=== PATIENT | male | born 1995 | race Two or more races ===

== ENCOUNTER 2017-01-11 07:21 | Inpatient (IN) | payer OTHER ==
[2017-01-11 07:43] LABS: % IMMATURE GRANULYOCYTES 0.1 % (0.0-1.1); ABSOLUTE IMMATURE GRANULOCYTES 0.01 10^3/uL (0.00-0.10); ADD DIFF? NO; ADD MORPH? NO; ADD SCAN? NO; ATYPICAL LYMPHOCYTE FLAG 0 (0-99); FRAGMENT RBC FLAG 0 (0-99); HEMOGLOBIN 17.9 g/dL (13.7-17.5); LEFT SHIFT FLG 0 (0-99); LIPEMIA HEMOLYSIS FLAG 90 (0-99); MEAN CELL HEMOGLOBIN 31.7 pg (27.9-34.1); MEAN CELL HEMOGLOBIN CONCENTR. 35.1 g/dL (32.4-36.7); MEAN CELL VOLUME 90.4 fL (81.5-99.8); MEAN PLATELET VOLUME 10.9 fL (8.7-11.7); PLATELET CLUMPS FLAG 0 (0-99); PLATELET COUNT 201 10^3/uL (150-400); RED BLOOD CELL COUNT 5.64 10^6/uL (4.40-6.38); RED CELL DISTRIBUTION WIDTH 12.4 % (11.5-15.2)
[2017-01-11] MEDS ORDERED: NS 1,000 ML IV ONE (07:52)
[2017-01-11] MEDS ORDERED: fentaNYL 100 MCG/2 ML INJ IVP ONE (07:52)
[2017-01-11] MEDS ORDERED: ONDANSETRON 4 MG/2 ML VIAL IVP ONE (07:52)
--- NOTE | 2017-01-11 07:56 | EDPHY ---
H & P Time Seen by Provider: 01/11/17 07:52 HPI/ROS: CHIEF COMPLAINT: Abdominal pain HISTORY OF PRESENT ILLNESS: Patient is a 21-year-old male status gastric bypass in 2011 and gallstones who presents emergency department with lower abdominal pain starting at 3:30 a.m. this morning. His pain was initially waxing waning. He describes it as bandlike along his lower abdomen. Initially started on the left side but now is more in the middle and right. He has had no nausea, vomiting or diarrhea. No dysuria frequency. Patient states he has had episodes like this previously. He has been told that he has gallbladder "mud." Patient also has issues "with my colon." No fever or chills. REVIEW OF SYSTEMS: My complete review of systems is negative except as mentioned in the HPI. Past Medical/Surgical History: Includes intermittent stomach issues, gallstones, gastric bypass Social history: The patient is taking finals. He does not smoke Smoking Status: Current every day smoker Physical Exam: Vitals noted GENERAL: Well-appearing, in no acute distress, alert. HEENT: Eyes normal to inspection, normal pharynx, no signs of dehydration. NECK: No thyromegaly, no lymphadenopathy, supple. RESPIRATORY: Clear to auscultation bilaterally, no rales, rhonchi or wheezing. CVS: Regular rate and rhythm, no rubs, murmurs, or gallops. ABDOMEN: Soft, patient has mild suprapubic, right lower quadrant, and LLQ tenderness palpation with no rebound or guarding. Patient has no right upper quadrant or epigastric tenderness to palpation. nondistended, no organomegaly. BACK: Normal to inspection, no CVA tenderness. SKIN: Normal color, no rash, warm, dry. No pallor. EXTREMITIES: No pedal edema, no calf tenderness, no Homans sign or cords, no joint swelling. NEURO/PSYCH: Alert and oriented x3, normal mood and affect, normal motor sensory exam. Constitutional: Initial Vital Signs Temperature (C) 36.5 C 01/11/17 07:32 Heart Rate 85 01/11/17 07:32 Respiratory Rate 18 01/11/17 07:32 Blood Pressure 119/88 H 01/11/17 07:32 O2 Sat (%) 96 01/11/17 07:32 O2 Delivery Mode Room Air Allergies/Adverse Reactions: No Known Allergies Allergy (Verified 04/14/16 16:28) Home Medications: Medication Instructions Recorded Pantoprazole Sodium [Protonix 40mg 40 mg PO DAILY 01/11/17 (*)] Medical Decision Making - Diagnostics Imaging Results: Imaging Impressions Abdomen CT 01/11/17 07:52 Impression: 1. Moderate partial SBO region of the proximal to mid ileum right mid abdomen anteriorly. 2. Mild hiatal hernia with some bowel anastomotic sutures along the margin of the stomach from previous gastric bypass procedure. 3. 1 mm nonobstructive calculus upper pole right kidney. Findings discussed with Isabelle Monroy M.D. at 9:07 hour, 01/11/2017. ED Course/Re-evaluation: In the emergency department I discussed possible etiologies with the patient. I answered all his questions. IV was placed. Laboratory studies were ordered. The patient was given fentanyl 50 mcg IV and Zofran [address] of the abdomen pelvis were ordered. I reviewed the patient's laboratory studies. His sodium is minimally elevated at 147. His total bili is mildly high at 1.5. The rest of his LFTs are unremarkable. His total protein and albumin are mildly elevated. Patient's white count is normal. Hematocrit is normal. CT abdomen pelvis: Please refer the dictated report by Dr. Carlin. Patient has early small-bowel obstruction. Normal-appearing appendix. I discussed the result with the patient. I answered all his questions. He was sitting comfortably in the bed. No active nausea vomiting. I consulted Dr. Shaw from the hospital service. He will admit. I also discussed the case with Dr. Sidhu from General surgery. He will consult. Differential Diagnosis: My differential includes but is not limited to appendicitis, cholecystitis, pancreatitis, colitis, diverticulitis, urinary tract infection, viral illness, IBS - Data Points Laboratory Results: Laboratory Results 01/11/17 07:25 01/11/17 07:25 01/11/17 01/11/17 07:25 07:25 WBC 7.62 10^3/uL 10^3/uL (3.80-9.50) RBC 5.64 10^6/uL 10^6/uL (4.40-6.38) Hgb 17.9 g/dL H g/dL (13.7-17.5) Hct 51.0 % % (40.0-51.0) MCV 90.4 fL fL (81.5-99.8) MCH 31.7 pg pg (27.9-34.1) MCHC 35.1 g/dL g/dL (32.4-36.7) RDW 12.4 % % (11.5-15.2) Plt Count 201 10^3/uL 10^3/uL (150-400) MPV 10.9 fL fL (8.7-11.7) Neut % (Auto) 50.4 % % (39.3-74.2) Lymph % (Auto) 39.5 % % (15.0-45.0) [place] % (Auto) 7.3 % % (4.5-13.0) Eos % (Auto) 2.0 % % (0.6-7.6) Baso % (Auto) 0.7 % % (0.3-1.7) Nucleat RBC Rel Count 0.0 % % (0.0-0.2) Absolute Neuts (auto) 3.84 10^3/uL 10^3/uL (1.70-6.50) Absolute Lymphs (auto) 3.01 10^3/uL H 10^3/uL (1.00-3.00) Absolute Monos (auto) 0.56 10^3/uL 10^3/uL (0.30-0.80) Absolute Eos (auto) 0.15 10^3/uL 10^3/uL (0.03-0.40) Absolute Basos (auto) 0.05 10^3/uL 10^3/uL (0.02-0.10) Absolute Nucleated RBC 0.00 10^3/uL 10^3/uL (0-0.01) Immature Gran % 0.1 % % (0.0-1.1) Immature Gran # 0.01 10^3/uL 10^3/uL (0.00-0.10) Sodium 147 mEq/L H mEq/L (134-144) Potassium 3.8 mEq/L mEq/L (3.5-5.2) Chloride 106 mEq/L mEq/L (97-110) Carbon Dioxide 27 mEq/l mEq/l (22-31) Anion Gap 14 mEq/L mEq/L (8-16) BUN 12 mg/dL mg/dL (7-23) Creatinine 0.8 mg/dL mg/dL (0.7-1.3) Estimated GFR > 60 Glucose 103 mg/dL H mg/dL (70-100) Calcium 10.3 mg/dL mg/dL (8.5-10.4) Total Bilirubin 1.5 mg/dL H mg/dL (0.1-1.4) Conjugated Bilirubin 0.4 mg/dL mg/dL (0.0-0.5) Unconjugated Bilirubin 1.1 mg/dL mg/dL (0.0-1.1) AST 24 IU/L IU/L (17-59) ALT 35 IU/L IU/L (21-72) Alkaline Phosphatase 53 IU/L IU/L (38-126) Total Protein 8.6 g/dL H g/dL (6.3-8.2) Albumin 5.2 g/dL H g/dL (3.5-5.0) Lipase 226.0 IU/L IU/L (23-300) Medications Given: Discontinued Medications Fentanyl (Sublimaze) 50 mcg IVP EDNOW ONE Stop: 01/11/17 07:53 Last Admin: 01/11/17 08:09 Dose: 50 mcg Sodium Chloride (Ns) 1,000 mls @ 0 mls/hr IV EDNOW ONE; Wide Open PRN Reason: Protocol Stop: 01/11/17 07:53 Last Admin: 01/11/17 08:09 Dose: 1,000 mls Morphine Sulfate (Morphine) 4 mg IVP EDNOW ONE Stop: 01/11/17 09:19 Last Admin: 01/11/17 09:18 Dose: 4 mg Ondansetron HCl (Zofran) 4 mg IVP EDNOW ONE Stop: 01/11/17 07:53 Last Admin: 01/11/17 08:09 Dose: 4 mg Departure - Departure Disposition: Home, Routine, Self-Care Clinical Impression: Small bowel obstruction Abdominal pain Qualifiers: Abdominal location: lower abdomen, unspecified Qualified Code(s): R10.30 - Lower abdominal pain, unspecified Condition: Good
[2017-01-11 08:02] LABS: ALANINE AMINOTRANSFERASE 35 IU/L (21-72); ALBUMIN 5.2 g/dL (3.5-5.0); ALKALINE PHOSPHATASE 53 IU/L (38-126); ANION GAP 14 mEq/L (8-16); ASPARTATE AMINOTRANSFERASE 24 IU/L (17-59); BILIRUBIN,TOTAL 1.5 mg/dL (0.1-1.4); BILIRUBIN-CONJUGATED 0.4 mg/dL (0.0-0.5); BILIRUBIN-UNCONJUGATED 1.1 mg/dL (0.0-1.1); CALCIUM 10.3 mg/dL (8.5-10.4); CARBON DIOXIDE 27 mEq/l (22-31); CHLORIDE 106 mEq/L (97-110); CREATININE 0.8 mg/dL (0.7-1.3); GLOMERULAR FILTRATION RATE > 60; GLUCOSE 103 mg/dL (70-100); POTASSIUM 3.8 mEq/L (3.5-5.2); SODIUM 147 mEq/L (134-144); TOTAL PROTEIN 8.6 g/dL (6.3-8.2)
[2017-01-11] MEDS ORDERED: IOPAMIDOL (ISOVUE-300) 100 ML BTL ONE (08:08)
[2017-01-11] MEDS ORDERED: ONDANSETRON 4 MG/2 ML VIAL IVP PRN (11:11)
[2017-01-11] MEDS ORDERED: ONDANSETRON DISINTEGRATING 4 MG TAB PO PRN (11:11)
[2017-01-11] MEDS ORDERED: oxyCODONE IR 5 MG TAB PO PRN (11:11)
[2017-01-11] MEDS ORDERED: ACETAMINOPHEN 325 MG TAB PO PRN (11:11)
[2017-01-11] MEDS ORDERED: NS 1,000 ML IV SCH (11:15)
--- NOTE | 2017-01-11 13:45 | GHP ---
[f rep st] HISTORY AND PHYSICAL DATE OF ADMISSION: 01/11/2017 CHIEF COMPLAINT: Abdominal pain. HISTORY OF PRESENT ILLNESS: This is a 21-year-old man, who presented with abdominal pain. He has a history of a sleeve gastrectomy in 2011 in [facility]. This started at 3 a.m., bandlike sensation acro ss his upper abdomen, severe. He has "colon problems," however, this felt different. He has not barroso d any nausea or vomiting. He did have a bowel movement immediately before he came into the hospital , which was normal. His pain is much better controlled after receiving fentanyl in the emergency de partment. He does have intermittent abdominal pain. He has been seen in the emergency department h ere relatively frequently. Typically treated with IV hydration and antiemetics. Never been admitte d to this hospital before. He has never had a small bowel obstruction before. PAST MEDICAL/PAST SURGICAL HISTORY: 1. Gastric bypass via sleeve gastrectomy in [facility] in 2011. 2. GERD. MEDICATIONS: Please see medication reconciliation. ALLERGIES: No known drug allergies. FAMILY HISTORY: He denies. SOCIAL HISTORY: He does smoke. He does not drink. REVIEW OF SYSTEMS: A 10-point review of systems is conducted and is negative except per HPI. PHYSICAL EXAMINATION: VITAL SIGNS: Blood pressure 109/67, heart rate 53, respiration rate 16, satu rating 98% on room air, temperature is 36.6. GENERAL: The patient is a pleasant man who appears co mfortable, in no acute distress. HEENT: Shows him to be normocephalic, atraumatic. CARDIOVASCULAR : Regular rate and rhythm. No murmurs, rubs, or gallops. PULMONARY: Shows lungs clear to auscult ation bilaterally. ABDOMEN: Soft. He is mildly tender to palpation, mostly in the epigastric area . He has faint bowel sounds. He does have notable stretch urias on his abdomen. SKIN: Shows no r familia. : Shows no Leonardo. NEUROLOGIC: Shows him to be alert and oriented x3. He is moving all ex tremities. PSYCHIATRIC: Shows normal mood and affect. LABORATORY DATA: CBC is unremarkable. Basic metabolic panel shows sodium 147, otherwise, relativel y unremarkable. DATA: 1. I discussed this with Dr. Sidhu. 2. I personally reviewed and interpreted his abdominal CT. This does show what looks to be a parti al small bowel obstruction. Per Radiology, he has a transition point in the ileum. He also has a h iatal hernia. IMPRESSION AND PLAN: A 21-year-old man, who presents with partial small bowel obstruction. 1. Partial small bowel obstruction: Anticipate conservative care. Will defer to Dr. Sidhu if he feels surgery is indicated. Appears comfortable. I will not place an NG tube at this time. Will p rovide him with IV hydration, IV pain control, keep him n.p.o. for now. Follow his clinical course. 2. Gastroesophageal reflux disease: Will continue his Protonix. /[id number]/MODL
--- NOTE | 2017-01-11 14:55 | GCON ---
[f rep st] CONSULTATION REASON FOR CONSULTATION: Possible bowel obstruction. HISTORY: Mr. Gentile is a 21-year-old [facility] male, who underwent a sleeve gastrectomy in 2011. He lost 130 kg as a result of that procedure. He has done well since that time, until 3 a.m. this morning, when he had a sharp continuous pain that occurred from 3 a.m. to 6 a.m. Between 6 and 7:30, it worsened and he presented to the emergency room. He did not have any nausea or vomiting. He did have some bloating, which has resolved. On presenting to the ER, he received IV narcotics and the pain went away and bloating has resolved. There is no history of recent upper respiratory tract infection. There is no history of diarrhea (he moves bowels approximately every other day). He had no prior similar episodes. He has not had any antibiotics in the last 6 months. He arrived from the [facility] in November of this year. There is no history of inflammatory bowel disease. At 6 p.m. last night, he had [employer]. At 10:30, he had a piece of fredrick and milk. At 1 a.m., he had grape leaves and more fredrick. At 2 a.m., he had half a plate of raw carrots (approximately 25) and more grape leaves. At this point, he is feeling much, much better. He is up and walking but he has not passed gas. SOCIAL HISTORY: He smokes half to three-quarters of a pack of cigarettes a day. He does not drink alcohol. ALLERGIES: He has no known drug allergies. MEDICATIONS: He usually takes a proton pump inhibitor, but stopped that for Ramada. There is no history of rheumatic fever, tuberculosis, hepatitis, or transfusions. There is no history of any other surgery. REVIEW OF SYSTEMS: Quite negative. There are no limitations of his activities. No history of steroid use. PHYSICAL EXAMINATION: GENERAL: He is awake and alert. ABDOMEN: Nontender to cough. To palpation, his pain is 1-2/10 in all the abdomen, except left lower quadrant where it is 3/10. Bowel sounds are hypoactive, but not high-pitched or obstructive sounding. I do not detect any hernias. LYMPHATIC: There is no cervical, supraclavicular, axillary, or inguinal lymphadenopathy. BACK: Unremarkable. LUNGS: Clear to auscultation. CARDIAC: Exam shows S1 and S2 to be normal. IMPRESSION: Small bowel obstruction per CT, yet symptoms seem to be resolving. I suspect this is more related to all the fiber that he ate last night, giving him a partial bowel obstruction. To further define it and hopefully help resolve it, we will plan to have him undergo a Gastrografin small bowel follow-through. /[id number]/MODL MTDD
[2017-01-12 04:16] VITALS: O2SAT 95
[2017-01-12 04:53] LABS: % IMMATURE GRANULYOCYTES 0.1 % (0.0-1.1); ABSOLUTE IMMATURE GRANULOCYTES 0.01 10^3/uL (0.00-0.10); ADD DIFF? NO; ADD MORPH? NO; ADD SCAN? NO; ATYPICAL LYMPHOCYTE FLAG 10 (0-99); FRAGMENT RBC FLAG 0 (0-99); HEMOGLOBIN 14.3 g/dL (13.7-17.5); LEFT SHIFT FLG 0 (0-99); LIPEMIA HEMOLYSIS FLAG 90 (0-99); MEAN CELL HEMOGLOBIN 32.1 pg (27.9-34.1); MEAN CELL HEMOGLOBIN CONCENTR. 34.9 g/dL (32.4-36.7); MEAN CELL VOLUME 92.1 fL (81.5-99.8); MEAN PLATELET VOLUME 11.5 fL (8.7-11.7); PLATELET CLUMPS FLAG 0 (0-99); PLATELET COUNT 155 10^3/uL (150-400); RED BLOOD CELL COUNT 4.45 10^6/uL (4.40-6.38); RED CELL DISTRIBUTION WIDTH 12.7 % (11.5-15.2)
[2017-01-12 05:21] LABS: ANION GAP 7 mEq/L (8-16); CARBON DIOXIDE 27 mEq/l (22-31); CHLORIDE 110 mEq/L (97-110); CREATININE 0.9 mg/dL (0.7-1.3); GLOMERULAR FILTRATION RATE > 60; GLUCOSE 78 mg/dL (70-100); POTASSIUM 4.5 mEq/L (3.5-5.2); SODIUM 144 mEq/L (134-144)
[2017-01-12 07:55] VITALS: TEMP 98.1
--- NOTE | 2017-01-12 08:32 | HOSPPROG ---
Hospitalist Progress Note Assessment/Plan: Patient is a 21-year-old male who presented to the emergency room with abdominal pain. He has a history of a sleeve gastrectomy in 2011 in [facility]. He had a CT that showed a partial small bowel obstruction. He also has a hiatal hernia. Today is my 1st encounter with the patient. Chart reviewed. * partial small bowel obstruction Was seen evaluated by Dr. Sidhu. Given supportive care tolerating clear liquids, having no pain if can eat and drink; can be dc home suspect it was from eating too much fiber *abdominal pain resolved *Plan: if eating and drinking without pain, no nausea, can dc Subjective: Janny has no c/o pain/ feeling well. Objective: Vital Signs Temp Pulse Resp BP Pulse Ox 36.7 C 49 L 14 97/54 L 95 01/12/17 07:54 01/12/17 07:54 01/12/17 07:54 01/12/17 07:54 01/12/17 07:54 Laboratory Results 01/12/17 04:10 01/12/17 04:10 01/11/17 01/12/17 01/13/17 05:59 05:59 05:59 Intake Total 1000 Output Total 250 Balance 750 - Physical Exam Constitutional: no apparent distress, appears nourished, not in pain Eyes: PERRL Ears, Nose, Mouth, Throat: moist mucous membranes Respiratory: no respiratory distress Gastrointestinal: normoactive bowel sounds, soft, non-tender abdomen Skin: warm, normal color Musculoskeletal: full muscle strength Neurologic: AAOx3 Psychiatric: interacting appropriately ICD10 Worksheet Patient Problems: Problems Problem Status Onset Abdominal pain Acute Small bowel obstruction Acute
[2017-01-12] MEDS ORDERED: PANTOPRAZOLE SODIUM 40 MG TAB PO SCH (09:00)
[2017-01-12 11:14] VITALS: BP 120/56; PULSE 51; RESP 16
--- NOTE | 2017-01-13 02:40 | GDS ---
[f rep st] DISCHARGE SUMMARY DISCHARGE DIAGNOSES: 1. Partial small bowel obstruction. 2. Abdominal pain. CONSULTATIONS DURING THIS STAY: Dr. Ap Sidhu [facility] COURSE: Briefly, the patient is a 21-year-old male, who presented to the emergency room wi th abdominal pain. He has a history of sleeve gastrectomy in 2011 in [facility]. His pain started in t he morning as band-like. He was seen and evaluated by Dr. Sidhu, who ordered a small-bowel follow- through, which also showed a partial small bowel obstruction but his symptoms seemed to resolve all on their own. Dr. Sidhu thought it was related to all the fiber he ate, giving him a partial bowel obstruction. Today, he is feeling markedly better. He has had a bowel movement. He is eating and drinking well. I explained to him if he should have any further episodes, to return to the emergen cy room. He will be traveling to the [facility]. I recommend that he consider getting another s mall bowel follow-through for followup care. HOSPITAL COURSE BY PROBLEM: 1. Small-bowel obstruction, resolved. 2. Abdominal pain, resolved. CONDITION AT DISCHARGE: Stable. Blood pressure is 97/54, O2 sats on room air 95%, respiratory rate is 14, pulse is 49, temperature is 36.7 Celsius. MEDICATIONS AT DISCHARGE: Please see the EMR. DISCHARGE INSTRUCTIONS: If he develops fever, chills, chest pain, worsening abdominal pain, or naus ea and vomiting, to return to the ER. /[id number]/MODL
== END 2017-01-12 13:17 | disposition home or self-care (01) | DRG 390 ==
LOC: F3E 10:22 → OBSVTOIN 01-12 09:13
PROVIDERS: ADMIT Student in an Organized Health Care Education/Training Program; ATTEND Student in an Organized Health Care Education/Training Program
DX: K56.60 Unspecified intestinal obstruction (principal); K21.9 Gastro-esophageal reflux disease without esophagitis
CPT/HCPCS: 96374; G0378; J2405; J3010; Q9967

== ENCOUNTER 2017-08-30 01:11 | Emergency (ER) | payer OTHER ==
[2017-08-30 01:16] VITALS: BP 115/75; PULSE 91; RESP 18; TEMP 98.2; O2SAT 96
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
== END 2017-08-30 02:05 | disposition home or self-care (01) ==
DX: S63.91XA Sprain of unspecified part of right wrist and hand, initial encounter (principal); F17.200 Nicotine dependence, unspecified, uncomplicated; V00.328A Other snow-ski accident, initial encounter; Y99.8 Other external cause status; Y93.23 Activity, snow (alpine) (downhill) skiing, snowboarding, sledding, tobogganing and snow tubing
CPT/HCPCS: L3807

== ENCOUNTER 2018-06-29 09:09 | Emergency (ER) | payer OTHER ==
[2018-06-29] MEDS ORDERED: NS 1,000 ML IV ONE (09:34)
--- NOTE | 2018-06-29 09:34 | EDPHY ---
HPI/HX/ROS/PE/MDM Narrative: CHIEF COMPLAINT: Nausea and vomiting HPI: The patient is a 22 y/o male with a history of a gastric sleeve, GERD, and gallstones complaining of nausea, vomiting, and abdominal discomfort onset this morning when he woke up. Last night he ate some cake and felt like it was stuck in his throat. He has been able to drink water without difficulty. He denies eating abnormal foods recently. No fever, chest pain, shortness of breath, urinary or bowel complaints, numbness, paresthesias. REVIEW OF SYSTEMS: Aside from elements discussed in the HPI, a comprehensive 10-point review of systems was reviewed and is negative. PMH: Gastric sleeve placed in 2011, GERD followed by GI of the [facility], small gallstones per his report SOCIAL HISTORY: Singles, lives in [place], student at PHYSICAL EXAM: General: Patient is alert, in no acute distress. ENT: Eyes are normal to inspection. ENT inspection normal. Neck: Normal inspection. Full range of motion. Respiratory: No respiratory distress. Breath sounds normal bilaterally. Cardiovascular: Regular rate and rhythm. Strong peripheral pulses. Normal cap refill. Abdomen: The abdomen is nontender to palpation. There are no peritoneal signs. There are normal bowel sounds. Back: Normal to inspection. No tenderness to palpation. Skin: Normal color. No rash. Warm and dry. Extremities: Normal appearance. Full range of motion. Neuro: Oriented x3. Normal motor function. Normal sensory function. ED Course: 1000: I reviewed patient's abdominal x-ray which reveals constipation but no bowel obstruction. 1233: Reassessed patient and discussed imaging and laboratory studies. He is feeling better after 1L IV NS, 4mg IV Zofran, and 10mg IV Reglan. Return precautions provided patient is comfortable with this plan. 1308: Patient has passed his PO challenge and is safe to be discharged home. MDM: This patient presents with abdominal pain and nausea in setting of remote gastric sleeve surgery. There are no signs of bowel obstruction or perforation. The patient was treated with antiemetics and IVF and on re- evaluation is tolerating fluids without difficulty and wants to go home. - Data Points Imaging Results: Imaging Impressions Abdomen X-Ray 06/29/18 09:35 Impression: 1. Constipation. 2. No evidence of mechanical bowel obstruction or pneumoperitoneum. Imaging: I viewed and interpreted images myself Laboratory Results: Laboratory Results 06/29/18 09:50 06/29/18 09:50 06/29/18 06/29/18 09:50 09:50 WBC 7.93 10^3/uL 10^3/uL (3.80-9.50) RBC 5.34 10^6/uL 10^6/uL (4.40-6.38) Hgb 16.9 g/dL g/dL (13.7-17.5) Hct 48.8 % % (40.0-51.0) MCV 91.4 fL fL (81.5-99.8) MCH 31.6 pg pg (27.9-34.1) MCHC 34.6 g/dL g/dL (32.4-36.7) RDW 12.6 % % (11.5-15.2) Plt Count 189 10^3/uL 10^3/uL (150-400) MPV 10.5 fL fL (8.7-11.7) Neut % (Auto) 53.8 % % (39.3-74.2) Lymph % (Auto) 35.1 % % (15.0-45.0) [place] % (Auto) 8.6 % % (4.5-13.0) Eos % (Auto) 1.8 % % (0.6-7.6) Baso % (Auto) 0.4 % % (0.3-1.7) Nucleat RBC Rel Count 0.0 % % (0.0-0.2) Absolute Neuts (auto) 4.28 10^3/uL 10^3/uL (1.70-6.50) Absolute Lymphs (auto) 2.78 10^3/uL 10^3/uL (1.00-3.00) Absolute Monos (auto) 0.68 10^3/uL 10^3/uL (0.30-0.80) Absolute Eos (auto) 0.14 10^3/uL 10^3/uL (0.03-0.40) Absolute Basos (auto) 0.03 10^3/uL 10^3/uL (0.02-0.10) Absolute Nucleated RBC 0.00 10^3/uL 10^3/uL (0-0.01) Immature Gran % 0.3 % % (0.0-1.1) Immature Gran # 0.02 10^3/uL 10^3/uL (0.00-0.10) Sodium 140 mEq/L mEq/L (135-145) Potassium 4.4 mEq/L mEq/L (3.5-5.2) Chloride 105 mEq/L mEq/L (97-110) Carbon Dioxide 29 mEq/l mEq/l (22-31) Anion Gap 6 mEq/L mEq/L (6-14) BUN 14 mg/dL mg/dL (7-23) Creatinine 0.9 mg/dL mg/dL (0.7-1.3) Estimated GFR > 60 Glucose 93 mg/dL mg/dL (70-100) Calcium 9.2 mg/dL mg/dL (8.5-10.4) Lipase 150 IU/L IU/L (23-300) Medications Given: Discontinued Medications Sodium Chloride (Ns) 1,000 mls @ 0 mls/hr IV EDNOW ONE; Wide Open PRN Reason: Protocol Stop: 06/29/18 09:35 Last Admin: 06/29/18 09:52 Dose: 1,000 mls Metoclopramide HCl (Reglan Injection) 10 mg IVP EDNOW ONE Stop: 06/29/18 11:47 Last Admin: 06/29/18 11:51 Dose: 10 mg Ondansetron HCl (Zofran) 4 mg IVP EDNOW ONE Stop: 06/29/18 10:01 Last Admin: 06/29/18 10:04 Dose: 4 mg General Initial Vital Signs: Initial Vital Signs Temperature (C) 37.0 C 06/29/18 09:12 Heart Rate 67 06/29/18 09:12 Respiratory Rate 16 06/29/18 09:12 Blood Pressure 113/69 06/29/18 09:12 O2 Sat (%) 98 06/29/18 09:12 O2 Delivery Mode Room Air Allergies/Adverse Reactions: No Known Allergies Allergy (Verified 02/07/18 00:45) Home Medications: Medication Instructions Recorded NK [No Known Home Meds] 06/29/18 Departure - Departure Disposition: Home, Routine, Self-Care Clinical Impression: Vomiting Condition: Good Instructions: Acute Nausea and Vomiting (ED) Additional Instructions: Follow-up with your primary doctor within 72 hours. Return to the Emergency Department for fever, chest pain, shortness of breath, increasing pain or other worsening of condition. Referrals: HEATHER Contreras,. [Clinic] - As per Instructions Report Scribed for: Delvis Garcia Report Scribed by: Bushra Caldwell Date of Report: 06/29/18 Time of Report: 09:34 Physician Review and Approval Statement: Portions of this note were transcribed by an ED scribe. I personally performed the history, physical exam, and medical decision making; and confirm the accuracy of the information in the transcribed note.
[2018-06-29 10:00] LABS: PLATELET COUNT 189 10^3/uL (150-400)
[2018-06-29] MEDS ORDERED: ONDANSETRON 4 MG/2 ML VIAL IVP ONE (10:00)
[2018-06-29] MEDS ORDERED: METOCLOPRAMIDE 10 MG/2 ML VIAL IVP ONE (11:46)
[2018-06-29 13:10] VITALS: BP 109/66
== END 2018-06-29 13:14 | disposition home or self-care (01) ==
DX: R11.2 Nausea with vomiting, unspecified (principal); E86.9 Volume depletion, unspecified; K59.00 Constipation, unspecified; K80.20 Calculus of gallbladder without cholecystitis without obstruction; K21.9 Gastro-esophageal reflux disease without esophagitis; Z98.84 Bariatric surgery status
CPT/HCPCS: 96374; J2405; J2765

== ENCOUNTER 2018-09-16 03:09 | Emergency (ER) | payer OTHER ==
[2018-09-16] MEDS ORDERED: KETOROLAC 15 MG/1 ML SDV ONE (03:26)
[2018-09-16] MEDS ORDERED: ONDANSETRON 4 MG/2 ML VIAL ONE (03:26)
[2018-09-16] MEDS ORDERED: ONDANSETRON 4 MG/2 ML VIAL IVP ONE (03:27)
[2018-09-16] MEDS ORDERED: NS 1,000 ML IV ONE (03:27)
[2018-09-16] MEDS ORDERED: KETOROLAC 15 MG/1 ML SDV IVP ONE (03:27)
--- NOTE | 2018-09-16 03:27 | EDPHY ---
H & P Stated Complaint: Abdominal Pain N/V Time Seen by Provider: 09/16/18 03:20 HPI/ROS: Chief Complaint: Abdominal pain, nausea, vomiting HPI: 23-year-old male with a history of gallstones, hiatal hernia and gastric sleeve for weight loss is presenting with right upper quadrant abdominal pain, nausea and vomiting which began 6 hr ago. Pain is about a 7/10. Is consistent with prior gallbladder pain. He has been advised for outpatient cholecystectomy but has not had the time to have this performed. No fevers or chills. No diarrhea or constipation. No blood or dark coffee-ground emesis. There are no aggravating or alleviating factors. ROS: 10 systems were reviewed and were negative except those elements noted in the HPI. PMH: Gallstones, hiatal hernia, bariatric gastric sleeve surgery Social History: No smoking, no alcohol, no recreational drug use Family History: non-contributory Physical Exam: Gen: Awake, Alert, No Distress HEENT: Nose: no rhinorrhea Eyes: PERRLA, EOMI Mouth: Moist mucosa Neck: Supple, no JVD Chest: nontender, lungs clear to auscultation Heart: S1, S2 normal, no murmur Abd: Soft, moderate right upper quadrant tenderness, no guarding Back: no CVA tenderness, no midline tenderness Ext: no edema, non-tender Skin: no rash Neuro: CN II-XII intact, Sensation grossly intact, Strength 5/5 in bilateral upper and lower extremities - Personal History Current Tetanus/Diphtheria Vaccine: Yes Current Tetanus Diphtheria and Acellular Pertussis (TDAP): Yes Tetanus Vaccine Date: < 10 years - Medical/Surgical History Hx Asthma: No Hx Chronic Respiratory Disease: No Hx Diabetes: No Hx Cardiac Disease: No Hx Renal Disease: No Hx Cirrhosis: No Hx Alcoholism: No Hx HIV/AIDS: No Hx Splenectomy or Spleen Trauma: No Other PMH: Gallstones. GERD followed by GI of [facility]. hx [place] gastric sleeve [place] - Social History Smoking Status: Former smoker Constitutional: Initial Vital Signs Temperature (C) 36.8 C 09/16/18 03:15 Heart Rate 84 09/16/18 03:15 Respiratory Rate 16 09/16/18 03:15 Blood Pressure 124/71 H 09/16/18 03:15 O2 Sat (%) 99 09/16/18 03:15 O2 Delivery Mode Room Air Allergies/Adverse Reactions: No Known Allergies Allergy (Verified 09/16/18 03:15) Home Medications: Medication Instructions Recorded NK [No Known Home Meds] 06/29/18 Medical Decision Making - Diagnostics Imaging Results: IMPRESSION: Cholelithiasis. ELECTRONICALLY SIGNED BY: Savanah Caballero MD Sep 16, 2018 4:55:22 AM MDT ED Course/Re-evaluation: 23-year-old male presenting with right upper quadrant abdominal pain history of cholelithiasis. Liver function tests are normal. Ultrasound shows cholelithiasis without evidence of choledocholithiasis or acute cholecystitis. Patient's pain is resolved with IV Toradol. Will discharge with referral to General surgery, follow up as an outpatient for any - Data Points Laboratory Results: Laboratory Results 09/16/18 03:30 09/16/18 03:30 09/16/18 09/16/18 03:30 03:30 WBC 9.51 10^3/uL H 10^3/uL (3.80-9.50) RBC 5.45 10^6/uL 10^6/uL (4.40-6.38) Hgb 16.7 g/dL g/dL (13.7-17.5) Hct 47.8 % % (40.0-51.0) MCV 87.7 fL fL (81.5-99.8) MCH 30.6 pg pg (27.9-34.1) MCHC 34.9 g/dL g/dL (32.4-36.7) RDW 12.6 % % (11.5-15.2) Plt Count 218 10^3/uL 10^3/uL (150-400) MPV 10.6 fL fL (8.7-11.7) Neut % (Auto) 58.9 % % (39.3-74.2) Lymph % (Auto) 31.2 % % (15.0-45.0) [place] % (Auto) 8.7 % % (4.5-13.0) Eos % (Auto) 0.6 % % (0.6-7.6) Baso % (Auto) 0.4 % % (0.3-1.7) Nucleat RBC Rel Count 0.0 % % (0.0-0.2) Absolute Neuts (auto) 5.59 10^3/uL 10^3/uL (1.70-6.50) Absolute Lymphs (auto) 2.97 10^3/uL 10^3/uL (1.00-3.00) Absolute Monos (auto) 0.83 10^3/uL H 10^3/uL (0.30-0.80) Absolute Eos (auto) 0.06 10^3/uL 10^3/uL (0.03-0.40) Absolute Basos (auto) 0.04 10^3/uL 10^3/uL (0.02-0.10) Absolute Nucleated RBC 0.00 10^3/uL 10^3/uL (0-0.01) Immature Gran % 0.2 % % (0.0-1.1) Immature Gran # 0.02 10^3/uL 10^3/uL (0.00-0.10) Sodium 141 mEq/L mEq/L (135-145) Potassium 4.0 mEq/L mEq/L (3.5-5.2) Chloride 102 mEq/L mEq/L (97-110) Carbon Dioxide 28 mEq/l mEq/l (22-31) Anion Gap 11 mEq/L mEq/L (6-14) BUN 16 mg/dL mg/dL (7-23) Creatinine 0.9 mg/dL mg/dL (0.7-1.3) Estimated GFR > 60 Glucose 89 mg/dL mg/dL (70-100) Calcium 9.4 mg/dL mg/dL (8.5-10.4) Total Bilirubin 1.1 mg/dL mg/dL (0.1-1.4) AST 20 IU/L IU/L (17-59) ALT 28 IU/L IU/L (21-72) Alkaline Phosphatase 55 IU/L IU/L (38-126) Total Protein 7.7 g/dL g/dL (6.3-8.2) Albumin 4.8 g/dL g/dL (3.5-5.0) Lipase 186 IU/L IU/L (23-300) Medications Given: Discontinued Medications Sodium Chloride (Ns) 1,000 mls @ 0 mls/hr IV ONCE ONE; Wide Open PRN Reason: Protocol Stop: 09/16/18 03:28 Last Admin: 09/16/18 03:33 Dose: 1,000 mls Ketorolac Tromethamine (Toradol) 15 mg IVP EDNOW ONE Stop: 09/16/18 03:28 Last Admin: 09/16/18 03:33 Dose: 15 mg Ondansetron HCl (Zofran) 4 mg IVP EDNOW ONE Stop: 09/16/18 03:28 Last Admin: 09/16/18 03:33 Dose: 4 mg Departure - Departure Disposition: Home, Routine, Self-Care Clinical Impression: Cholelithiasis Condition: Good Instructions: Gallstones (ED) Additional Instructions: Follow up with general surgeon as an outpatient to arrange for elective gallbladder removal. Referrals: Timmy Rodriguez MD [Medical Doctor] - As per Instructions
[2018-09-16 03:43] LABS: PLATELET COUNT 218 10^3/uL (150-400)
[2018-09-16 05:07] VITALS: BP 117/71
== END 2018-09-16 05:07 | disposition home or self-care (01) ==
DX: K80.20 Calculus of gallbladder without cholecystitis without obstruction (principal); Z87.891 Personal history of nicotine dependence
CPT/HCPCS: 96374; J1885; J2405